=== PATIENT | female | born 1960 | race Caucasian/White ===

== ENCOUNTER 2024-03-22 15:56 | Emergency (ER) | payer OTHER, SELFPAY ==
[2024-03-22 15:58] VITALS: BP 165/100
[2024-03-22 16:27] LABS: % Basophils 1.2 % (0-2); % Eosinophils 2.6 % (0-6); % Immature Granulocytes 0.3 % (0-0.5); % Lymphocytes 31.6 % (20.5-51.1); % Monocytes 8.3 % (1.7-9.3); Absolute Basophils 0.1 10^3/uL (0-0.2); Absolute Eosinophils 0.2 10^3/uL (0-0.7); Absolute Lymphocytes 2.4 10^3/uL (1.2-3.4); Absolute Monocytes 0.6 10^3/uL (0.1-0.6); Absolute Neutrophils 4.3 10^3/uL (1.4-6.5); Hematocrit 37.5 % (37.0-47.0); Hemoglobin 13.3 g/dL (12.0-16.0); Mean Corp Hgb Conc. 35.5 g/dL (33.0-37.0); Mean Corpuscular Hgb 32.8 pg (27.0-31.0); Mean Corpuscular Volume 92.4 fL (81.0-99.0); Nucleated Red Blood Cells % 0 %; Platelet Count 304 10^3/uL (130-400); Red Blood Cell Count 4.06 10^6/uL (4.20-5.40); Red Cell Dist. Width 12.5 % (11.5-14.5); White Blood Cell Count 7.7 10^3/uL (4.8-10.8)
[2024-03-22 16:35] LABS: ALT (SGPT) 18 U/L (0-35); AST (SGOT) 27 U/L (14-36); Albumin 4.3 g/dl (3.5-5.0); Alkaline Phosphatase 64 U/L (38-126); Blood Urea Nitrogen 19 mg/dl (7-17); Calcium 9.6 mg/dl (8.4-10.2); Carbon Dioxide 28 mmol/L (22-30); Chloride 103 mmol/L (98-107); Glucose 103 mg/dl (70-99); Potassium 3.5 mmol/L (3.5-5.1); Sodium 136 mmol/L (135-145); Total Bilirubin 0.4 mg/dl (0.2-1.3); Total Protein 6.7 g/dl (6.3-8.2); eGFR > 60.00
[2024-03-22 16:47] LABS: Troponin I < 0.012 ng/ml
[2024-03-22 17:08] VITALS: BP 131/84
--- NOTE | 2024-03-22 17:33 | ED.GENMED ---
History of Present Illness
General
Chief Complaint: Chest Pain
Source: patient
Exam Limitations: none
Time Seen by Provider: 03/22/24 17:03
Nursing documentation reviewed up to this point in time: agreed with
History of Present Illness
History of Present Illness:
63 yo female w hx HTN presents for 4 days of left side upper chest pains, intermittent, sharp, lasting for 1-2 minutes then subsiding without any intervention. Has taken nothing for the pains. No associated SOB, sweating, nausea, lightheadedness.
Pain not there currently.
Her basement flooded and in past week she has been carrying a lot of heavy things, cleaning up the basement.
Past History
Past History
ED Past Medical History: HTN
ED Past Surgical History: Orthopedic
Social History
Tobacco: Non-smoker
Alcohol: Occasional
Personal:
Living: with family
Review of Systems
Review of Systems
Allergies reviewed?: Yes
All Other Systems: ROS reviewed and negative except as documented in HPI and ROS
Constitutional: Denies fever or fatigue
Respiratory: Denies trouble breathing
Cardiac: Reports chest pain; Denies diaphoresis, palpitations or syncope
ABD/GI: Denies abdominal pain, nausea, vomiting or diarrhea
: Denies dysuria or difficulty voiding
Musculoskeletal: Reports no symptoms
Skin: Reports no symptoms
Phy Exam
Physical Exam
Physical Exam:
GENERAL: No acute distress. A&Ox3.
CONSTITUTIONAL: Afebrile.
RESPIRATORY: Regular respirations, nonlabored, lungs clear.
CARDIOVASCULAR: Regular rate and rhythm, no murmurs, no rubs.
GI: Soft, nontender, normal BS
MUSCULOSKELETAL: Moves with ease. Well perfused. Cannot reproduce the chest pain with palpation of the chest wall.
SKIN: Warm, dry, pink
PSYCH: Normal mood and affect. Well kept, interactive and appropriate
NEUROLOGIC: Awake, alert and oriented. No focal neurological deficits
Scores
Heart Score for Chest Pain Patients
STEMI patient?: No
History: Slightly or Non-Suspicious
ECG: Normal
Age: >45 - <65 years
Risk Factors: 1 or 2 Risk Factors
Troponin: </= Normal Limit
Heart Score for Chest Pain Patients: 2
Heart Score Risk: 2.5% MACE over next 6 weeks
Course
Orders/Labs/Results
Orders:
Orders
03/22/24 15:58
Electrocardiogram (*1) Urgent
Reason for Study: Chest Pain
EKG- Treatment ONCE
03/22/24 16:10
Complete Blood Count/With Diff Urgent
Comprehensive Metabolic Panel Urgent
Prothrombin Time Urgent
Troponin I Urgent
Abnormal Lab Results
03/22/24
16:10
RBC 4.06 L 10^6/uL
(4.20-5.40)
MCH 32.8 H pg
(27.0-31.0)
BUN 19 H mg/dl
(7-17)
Glucose 103 H mg/dl
(70-99)
03/22/24 16:10
03/22/24 16:10
Vital Signs
Initial and Last Documented VS:
Initial Vital Signs
Temp Pulse Resp BP Pulse Ox
98.1 F 81 18 165/100 97
03/22/24 15:58 03/22/24 15:58 03/22/24 15:58 03/22/24 15:58 03/22/24 15:58
Last Documented Vital Signs
Temp Pulse Resp BP Pulse Ox
98.1 F 69 20 131/84 97
03/22/24 15:58 03/22/24 17:15 03/22/24 17:15 03/22/24 17:08 03/22/24 17:15
MDM/Problems Addressed
Differential Diagnosis Includes:
ACS, MS, costochondritis, muscle strain chest wall
MDM/Problems Addressed:
63 yo female w hx HTN presents for 4 days of left side upper chest pains, intermittent, sharp, lasting for 1-2 minutes then subsiding without any intervention. Has taken nothing for the pains. No associated SOB, sweating, nausea, lightheadedness.
Pain not there currently.
Her basement flooded and in past week she has been carrying a lot of heavy things, cleaning up the basement.
CBC, CMP unremarkable
Troponin WNL
EKG NSR
Chronic conditions affecting care: HTN
*Critical Care Note
Total Time (30-74mins, 75-104mins- exclusive of procedures): Not Applicable
ED Attending Note
-
Portions of this chart may have been created with voice recognition software.� Occasional wrong word or��sound alike� substitutions may have occurred due to the inherent limitations of voice recognition software.
Discharge Plan
Departure
Patient Disposition: Home (Routine Discharge)
Date of Disposition: 03/22/24
Time of Disposition: 17:27
Patient with high blood pressure during this ER visit?: No
Condition: Good
Discharge Problem:
Atypical chest pain
Instructions: Chest Pain That Is Not Caused by the Heart (DC), Costochondritis (DC)
Referrals:
Cordell Lara MD [Active] - Next open appointment
Activity Restrictions/Additional Instructions:
As we discussed, nothing worrisome in your work up here today
Since you have so much physical work to do at home, try Ibuprofen 600 mg (with food) three times a day for the next 2 days and see if it helps.
Return here immediately with chest pain associated with sweating, lightheadedness/dizziness, nausea/vomiting or feeling worse in any way.
Interventions
Interventions:
*Risk Screen - Suicide Last Done: 03/22/24 15:58
*General Assessment Last Done: 03/22/24 15:58
*Neglect/Abuse Screening Last Done: 03/22/24 15:58
ED- Fall Risk Assessment Last Done: 03/22/24 17:44
*ED COVID-19 Vaccine History Last Done: 03/22/24 17:44
*Nursing Disposition Last Done: 03/22/24 17:44
ED- Cardiac Assessment Last Done: 03/22/24 17:15
Discharge Date and Time
Discharge Date/Time: 03/22/24 17:46
Print Language: TAJIK
== END 2024-03-22 17:46 | disposition home or self-care (01) ==
LOC: EMR 15:56
PROVIDERS: Emergency Medicine; EMERGENCY PHYSICIAN Student in an Organized Health Care Education/Training Program
DX: R07.89 Other chest pain (principal); I10 Essential (primary) hypertension
CPT/HCPCS: 99284; 80053; 84484; 85025; 85610; 93005

== ENCOUNTER 2024-10-31 14:41 | Emergency (ER) | payer OTHER, SELFPAY ==
[2024-10-31 14:43] VITALS: BP 165/115
[2024-10-31 15:17] LABS: % Basophils 0.6 % (0-2); % Eosinophils 0.9 % (0-6); % Immature Granulocytes 0.7 % (0-0.5); % Lymphocytes 17.9 % (20.5-51.1); % Monocytes 6.3 % (1.7-9.3); % Neutrophils 73.6 % (42.2-75.2); Absolute Basophils 0.1 10^3/uL (0-0.2); Absolute Eosinophils 0.1 10^3/uL (0-0.7); Absolute Immature Granulocytes 0.1 10^3/uL (0-0.05); Absolute Lymphocytes 2.2 10^3/uL (1.2-3.4); Absolute Monocytes 0.8 10^3/uL (0.1-0.6); Hematocrit 39.3 % (37.0-47.0); Hemoglobin 13.2 g/dL (12.0-16.0); Mean Corp Hgb Conc. 33.6 g/dL (33.0-37.0); Mean Corpuscular Hgb 31.3 pg (27.0-31.0); Mean Corpuscular Volume 93.1 fL (81.0-99.0); Mean Platelet Volume 8.8 fL (7.4-10.4); Nucleated Red Blood Cells % 0 %; Platelet Count 305 10^3/uL (130-400); Red Blood Cell Count 4.22 10^6/uL (4.20-5.40); Red Cell Dist. Width 12.3 % (11.5-14.5); White Blood Cell Count 12.2 10^3/uL (4.8-10.8)
[2024-10-31 15:26] LABS: ALT (SGPT) 17 U/L (0-35); AST (SGOT) 23 U/L (14-36); Albumin 4.4 g/dl (3.5-5.0); Alkaline Phosphatase 79 U/L (38-126); Blood Urea Nitrogen 16 mg/dl (7-17); Calcium 10.6 mg/dl (8.4-10.2); Carbon Dioxide 28 mmol/L (22-30); Chloride 100 mmol/L (98-107); Glucose 104 mg/dl (70-99); Potassium 5.1 mmol/L (3.5-5.1); Sodium 138 mmol/L (135-145); Total Bilirubin 0.6 mg/dl (0.2-1.3); Total Protein 7.1 g/dl (6.3-8.2); eGFR > 60.00
--- NOTE | 2024-10-31 17:41 | ED.GENMED ---
History of Present Illness
General
Chief Complaint: Post Operative Problem(s)
Source: patient
Exam Limitations: none
Time Seen by Provider: 10/31/24 16:59
Nursing documentation reviewed up to this point in time: agreed with
History of Present Illness
History of Present Illness:
Patient status post left knee replacement in June 2024, presents to ED secondary to worsening left knee pain with swelling over the past 2 weeks, with initial discomfort starting in August. At onset of her pain, patient was evaluated by her
orthopedic surgeon, who performed CT scanning as well as joint aspiration, without any significant findings. Denies fever or chills. Denies new trauma. Denies loss of sensation or weakness.
Past History
Past History
ED Past Medical History: HTN
ED Past Surgical History: Orthopedic
Social History
Tobacco: Non-smoker
Alcohol: Occasional
Personal:
Living: with family
Review of Systems
Review of Systems
Allergies reviewed?: Yes
All Other Systems: ROS reviewed and negative except as documented in HPI and ROS
Constitutional: Reports no symptoms; Denies fever or chills
Respiratory: Reports no symptoms
ABD/GI: Reports no symptoms; Denies vomiting or diarrhea
Musculoskeletal: Reports joint swelling and edema
Skin: Reports no symptoms
Neurological: Reports no symptoms
Phy Exam
Physical Exam
Physical Exam:
Physical Exam
General: moderate painful distress, not acutely ill. afebrile
Head: nc/at. eomi
Neck: supple. normal range of motion.
Abdomen: normal bowel sounds. not tender.
Neuro: alert and oriented x 3. no focal neurological deficits
Skin: no rash
Psychiatric: well kept. interactive and cooperative
Extremities: right knee swelling/tenderness/warmth noted without open wound. limited ROM due to pain
Course
Orders/Labs/Results
Orders:
Orders
10/31/24 14:50
Knee, Left 4 or More Views [CR Knee - Left 4 Or More View*] Urgent
Comment:
Reason For Exam: pain, swelling
10/31/24 14:56
Complete Blood Count/With Diff Urgent
Comprehensive Metabolic Panel Urgent
10/31/24 17:31
HYDROmorphone [Dilaudid] 0.5 mg IV NOW STA
Ketorolac [Toradol] 15 mg IV NOW STA
US Legs, Left [US Periph Venous LOWER Ext LT] Urgent
Comment:
Reason For Exam: LLE swelling/pain
10/31/24 17:51
Lactic Acid Urgent
Blood Culture Urgent
KARY Source: Blood/Venous
Specimen Description:
10/31/24 19:32
Ice Pack-Treatment DIRECTED
Location: knee
10/31/24 19:50
Body Fluid Cell Count Urgent
What is the Body Fluid: joint
Date Specimen was Collected: 10/31/24
Time Specimen was Collected: 19:34
Comment: with DIFF
Body Fluid Crystals Urgent
What is the Body Fluid: joint
Date Specimen was Collected: 10/31/24
Time Specimen was Collected: 19:34
Fluid Culture with Gram Stain Urgent
KARY Source: Joint Fluid
Specimen Description:
Date Specimen was Collected: 10/31/24
Time Specimen was Collected: 19:34
Abnormal Lab Results
10/31/24
14:56
WBC 12.2 H 10^3/uL
(4.8-10.8)
MCH 31.3 H pg
(27.0-31.0)
Abs Immat Gran (auto) 0.1 H 10^3/uL
(0-0.05)
Absolute Neuts (auto) 9.0 H 10^3/uL
(1.4-6.5)
Absolute Monos (auto) 0.8 H 10^3/uL
(0.1-0.6)
Immature Gran % 0.7 H %
(0-0.5)
Lymphocytes % 17.9 L %
(20.5-51.1)
Glucose 104 H mg/dl
(70-99)
Calcium 10.6 H mg/dl
(8.4-10.2)
10/31/24 14:56
10/31/24 14:56
Vital Signs
Initial and Last Documented VS:
Initial Vital Signs
Temp Pulse Resp BP Pulse Ox
98.5 F 98 18 165/115 99
10/31/24 14:43 10/31/24 14:43 10/31/24 14:43 10/31/24 14:43 10/31/24 14:43
Last Documented Vital Signs
Temp Pulse Resp BP Pulse Ox
98.5 F 76 16 152/78 95
10/31/24 14:43 10/31/24 20:58 10/31/24 20:58 10/31/24 21:00 10/31/24 21:15
Procedures
Incision/Drainage/Joint Aspiration
Left Knee:
Anethesia: 1% Lidocaine with Epi
Preparation: cleaned with Betadine
Type of procedure: aspiration
Nature of site: other (swelling with warmth)
How much fluid was obtained?: number in mls (25 ml)
Fluid description: bloody
Treatment: bandaid applied
MDM/Problems Addressed
MDM/Problems Addressed:
Based on patient's presentation, i.e. swelling/warmth, decision made to perform arthrocentesis, with concern for potential septic arthritis with recent procedure, i.e. total knee replacement.
Procedure consent on the chart.
Cell count less than 3000. Discussed with on-call orthopedic surgeon, Dr. Alvarado who feels the patient can be discharged home for an outpatient follow-up with her orthopedic surgeon.,
*Critical Care Note
Total Time (30-74mins, 75-104mins- exclusive of procedures): Not Applicable
ED Attending Note
-
Portions of this chart may have been created with voice recognition software.� Occasional wrong word or��sound alike� substitutions may have occurred due to the inherent limitations of voice recognition software.
Discharge Plan
Departure
Patient Disposition: Home (Routine Discharge)
Date of Disposition: 10/31/24
Time of Disposition: 21:38
Patient with high blood pressure during this ER visit?: Yes
Condition: Good
Discharge Problem:
Knee pain
Instructions: Knee pain - ED discharge instructions
Referrals:
Derek Chavez MD [Family Provider] -
Activity Restrictions/Additional Instructions:
As discussed, please follow-up with your orthopedic surgeon for continual evaluation and treatment.
Interventions
Interventions:
*Risk Screen - Suicide Last Done: 10/31/24 14:43
*General Assessment Last Done: 10/31/24 14:43
*Neglect/Abuse Screening Last Done: 10/31/24 14:43
*ED- Fall Risk Assessment Last Done: 10/31/24 19:51
*ED COVID-19 Vaccine History Last Done: 10/31/24 19:51
*Nursing Disposition Last Done: 10/31/24 21:46
ED-Skin Assessment Last Done: 10/31/24 17:55
Discharge Date and Time
Discharge Date/Time: 10/31/24 21:46
Print Language: MOROCCAN
[2024-10-31] MEDS: TORADOL 15 MG IV (17:50)
[2024-10-31] MEDS: DILAUDID 0.5 MG IV (17:51)
[2024-10-31 18:21] LABS: Lactic Acid 1.2 mmol/L (0.7-2.0)
[2024-10-31 19:51] VITALS: BMI 25.8
[2024-10-31 20:01] VITALS: BP 151/89
[2024-10-31 20:25] LABS: Body Fluid Mononuclear 15.1 %; Body Fluid Polymorphonuclear 84.9 %; Body Fluid WBC 2599 /CUMM
[2024-10-31 21:00] VITALS: BP 152/78
[2024-10-31 21:01] LABS: Body Fluid Second Tech FB
== END 2024-10-31 21:46 | disposition home or self-care (01) ==
LOC: EMR 14:41
PROVIDERS: Student in an Organized Health Care Education/Training Program; EMERGENCY PHYSICIAN Emergency Medicine; FAMILY PHYSICIAN Orthopaedic Surgery Sports Medicine; OTHER PHYSICIAN Internal Medicine
DX: M25.562 Pain in left knee (principal); M25.462 Effusion, left knee; I10 Essential (primary) hypertension; Z96.652 Presence of left artificial knee joint
CPT/HCPCS: 20610; 96374; 96375; 99284; 73564; 80053; 83605; 85025; 87015; 87040; 87070; 87205; 89051; 89060; 93971